=== PATIENT | male | born 1990 | race Caucasian/White ===

== ENCOUNTER 2020-07-10 03:20 | Observation (INO) | payer BC, OTHER ==
--- NOTE | 2020-07-10 04:07 | EDPHYS ---
Physician Documentation [facility] Name: Sarmad Spencer Age: 30 yrs Sex: Male : 1990 Arrival Date: 07/10/2020 Time: 03:22 Bed 8 Private MD: CHANTELL Physician Cuco Varma HPI: 07/10 04:01 This 30 yrs old Male presents to ER via Wheelchair with complaints of Chest mulu Pain. 04:01 The patient or guardian reports chest pain that is located primarily in the substernal mulu area, anterior chest wall, bilaterally. The pain does not radiate. Associated signs and symptoms: Pertinent positives: shortness of breath. The chest pain is described as a heaviness, a pressure, sharp. Duration: The patient or guardian reports a single episode, that is still ongoing. Modifying factors: The symptoms are alleviated by nothing. the symptoms are aggravated by deep breath. Severity of pain: At its worst the pain was moderate in the emergency department the pain is unchanged. The patient has not experienced similar symptoms in the past. Historical: - Allergies: 03:35 No Known Allergies; sg - Home Meds: 03:35 Lisinopril Oral [Active]; testosterone undecanoate intramuscular intramuscular [Active];sg - PMHx: 03:35 Hypertension; sg - PSHx: 03:35 None; sg - Immunization history:: Adult Immunizations up to date. - Social history:: Smoking status: Patient denies any tobacco usage or history of. - Family history:: not pertinent. ROS: 04:01 Constitutional: Negative for fever, chills, and weight loss, Eyes: Negative for injury, mulu pain, redness, and discharge, ENT: Negative for injury, pain, and discharge, Neck: Negative for injury, pain, and swelling, Respiratory: Negative for shortness of breath, cough, wheezing, and pleuritic chest pain, Abdomen/GI: Negative for abdominal pain, nausea, vomiting, diarrhea, and constipation, Back: Negative for injury and pain, : Negative for injury, bleeding, discharge, and swelling, MS/Extremity: Negative for injury and deformity, Skin: Negative for injury, rash, and discoloration, Neuro: Negative for headache, weakness, numbness, tingling, and seizure, Psych: Negative for depression, anxiety, suicide ideation, homicidal ideation, and hallucinations, Allergy/Immunology: Negative for hives, rash, and allergies, Endocrine: Negative for neck swelling, polydipsia, polyuria, polyphagia, and marked weight changes. 04:01 Cardiovascular: Positive for chest pain, of the chest. 05:56 ENT: Negative for sinus congestion, sore throat, difficulty swallowing. mulu 05:56 Cardiovascular: Positive for pleurtic. 05:56 MS/extremity: Negative for acute changes. Exam: 04:01 Constitutional: This is a well developed, well nourished patient who is awake, alert, mulu and in no acute distress. Head/Face: Normocephalic, atraumatic. Eyes: Pupils equal round and reactive to light, extra-ocular motions intact. Lids and lashes normal. Conjunctiva and sclera are non-icteric and not injected. Cornea within normal limits. Periorbital areas with no swelling, redness, or edema. ENT: Nares patent. No nasal discharge, no septal abnormalities noted. Tympanic membranes are normal and external auditory canals are clear. Oropharynx with no redness, swelling, or masses, exudates, or evidence of obstruction, uvula midline. Mucous membranes moist. Neck: Trachea midline, no thyromegaly or masses palpated, and no cervical lymphadenopathy. Supple, full range of motion without nuchal rigidity, or vertebral point tenderness. No Meningismus. Chest/axilla: Normal chest wall appearance and motion. Nontender with no deformity. No lesions are appreciated. Cardiovascular: Regular rate and rhythm with a normal S1 and S2. No gallops, murmurs, or rubs. Normal PMI, no JVD. No pulse deficits. Respiratory: Lungs have equal breath sounds bilaterally, clear to auscultation and percussion. No rales, rhonchi or wheezes noted. No increased work of breathing, no retractions or nasal flaring. Abdomen/GI: Soft, non-tender, with normal bowel sounds. No distension or tympany. No guarding or rebound. No evidence of tenderness throughout. Back: No spinal tenderness. No costovertebral tenderness. Full range of motion. Male : Normal genitalia with no discharge or lesions. Skin: Warm, dry with normal turgor. Normal color with no rashes, no lesions, and no evidence of cellulitis. MS/ Extremity: Pulses equal, no cyanosis. Neurovascular intact. Full, normal range of motion. Neuro: Awake and alert, GCS 15, oriented to person, place, time, and situation. Cranial nerves II-XII grossly intact. Motor strength 5/5 in all extremities. Sensory grossly intact. Cerebellar exam normal. Normal gait. Psych: Awake, alert, with orientation to person, place and time. Behavior, mood, and affect are within normal limits. 04:08 ECG was reviewed by the Attending Physician. mulu 05:55 Cardiovascular: Rate: normal, Rhythm: regular, Pulses: Pulses are 4+ in bilateral mulu radial, brachial, femoral, popliteal, posterior tibial and and dorsalis pedis arteries.. Heart sounds: normal, normal S1and S2, no S3 or S4, no murmur, no rub, no gallop, Edema: is not appreciated, JVD: is not appreciated. 05:55 Abdomen/GI: Inspection: abdomen appears normal, Bowel sounds: normal, Palpation: abdomen is soft and non-tender, Liver: no appreciated palpable abnormalities, Hernia: not appreciated. 05:55 Musculoskeletal/extremity: DVT Exam: No signs of deep vein thrombosis. no pain, no swelling, no tenderness, negative Homans' sign noted on exam, no appreciated bluish discoloration, no erythema, no increased warmth. 05:57 Respiratory: the patient does not display signs of respiratory distress, Respirations: mulu normal, no acute changes, Breath sounds: are clear throughout, no bronchial sounds, no decreased breath sounds, no rales, rhonchi, no stridor, no wheezing, Respiratory rate: 16 Vital Signs: 03:31 BP 156 / 112; Pulse 89; Resp 18 S; Pulse Ox 100% on R/A; Weight 99.79 kg; Height 6 ft. sg 2 in. (187.96 cm); Pain 10/10; 04:15 BP 116 / 73; Pulse 67; Resp 16; Pulse Ox 97% on R/A; Pain 6/10; mt2 04:28 BP 127 / 85; Pulse 91; Resp 17; Pulse Ox 97% on R/A; Pain 6/10; mt2 05:00 BP 122 / 81; Pulse 95; Resp 16; Pulse Ox 99% on R/A; Pain 3/10; mt2 06:27 BP 127 / 81; Pulse 96; Resp 16; Pulse Ox 97% ; Pain 0/10; mt2 03:31 Body Mass Index 28.25 (99.79 kg, 187.96 cm) sg 04:15 LEFT ARM mt2 04:28 RIGHT ARM mt2 MDM: 03:30 Patient medically screened. mulu 04:03 Data reviewed: vital signs, nurses notes, lab test result(s), EKG, radiologic studies, mulu CT scan, plain films. 04:03 Differential diagnosis: abnormal EKG, coronary artery disease chest wall pain, mulu cholecystitis, Cholelithiasis hiatal hernia, pleurisy, pulmonary embolus, stable angina, unstable angina. HEART Score: History: Slightly Suspicious (0), ECG: Normal (0), Age: < or = 45 years (0), Risk Factors: 1 or 2 risk factors (1), [Hypertension] Troponin: < or = 1 x Normal Limit (0). The patient's deep vein thrombosis risk score was calculated as follows: Total Score: 0. This patient was found to be at low risk for a deep vein thrombosis by using the Well's assessment criteria. The patient's pulmonary embolism risk score was calculated as follows: Total Score: 0-2 points. This patient was found to be at low risk for a pulmonary embolism by using the Well's assessment criteria. NICK Risk Score: TOTAL SCORE = 0. Data interpreted: conversion worker: rate is 89 beats/min, rhythm is regular, Pulse oximetry: on. Test interpretation: by ED physician or midlevel provider: ECG, plain radiologic studies. Counseling: I had a detailed discussion with the patient and/or guardian regarding: the historical points, exam findings, and any diagnostic results supporting the discharge/admit diagnosis, the presence of at least one elevated blood pressure reading (>120/80) during this emergency department visit, lab results, radiology results, the need for further work-up and treatment in the hospital. 05:37 Medication response: morphine markedly relieved the patient's pain. Symptoms have mulu improved, 07/10 03:31 Order name: Basic Metabolic Panel; Complete Time: 05:40 mulu 07/10 03:31 Order name: CBC with Diff; Complete Time: 05:04 mulu 07/10 03:31 Order name: LFT's; Complete Time: 05:40 mulu 07/10 03:31 Order name: Magnesium; Complete Time: 05:40 mulu 07/10 03:31 Order name: PT-INR; Complete Time: 05:04 [facility] 07/10 03:31 Order name: Troponin (emerg Dept Use Only); Complete Time: 05:40 [facility] 07/10 03:31 Order name: XRAY Chest (1 view) [facility] 07/10 03:31 Order name: Lipase; Complete Time: 05:40 [facility] 07/10 03:31 Order name: UDS; Complete Time: 05:04 [facility] 07/10 04:01 Order name: CT Chest For PE Angio [facility] 07/10 04:29 Order name: Urine Dipstick--Ancillary (enter results); Complete Time: 05:04 2 07/10 07:00 Order name: CREATININE WHOLE BLOOD [facility] 07/10 03:31 Order name: EKG; Complete Time: 03:32 [facility] 07/10 03:31 Order name: Cardiac monitoring; Complete Time: 03:50 [facility] 07/10 03:31 Order name: EKG - Nurse/Tech; Complete Time: 03:50 [facility] 07/10 03:31 Order name: IV Saline Lock; Complete Time: 03:50 [facility] 07/10 03:31 Order name: Labs collected and sent; Complete Time: 03:50 [facility] 07/10 03:31 Order name: O2 Per Protocol; Complete Time: 03:50 [facility] 07/10 03:31 Order name: O2 Sat Monitoring; Complete Time: 03:50 [facility] 07/10 04:09 Order name: Bilateral blood pressure; Complete Time: 04:15 [facility] EC:08 Rate is 89 beats/min. Rhythm is regular. QRS [place] is Normal. HI interval is normal. QRS mulu interval is normal. QT interval is normal. No Q waves. T waves are Normal. No ST changes noted. Clinical impression: Normal ECG and No evidence of ischemia. Interpreted by me. Reviewed by me. Administered Medications: 04:13 Drug: Zofran (Ondansetron) 4 mg Route: IVP; Site: right antecubital; mt2 04:28 Follow up: Response: No adverse reaction mt2 04:14 Drug: Pepcid 20 mg Route: IVP; Site: right antecubital; mt2 04:29 Follow up: Response: No adverse reaction; Pain is decreased mt2 04:14 Drug: NS 0.9% 1000 ml Route: IV; Rate: 1 bolus; Site: right antecubital; mt2 04:29 Follow up: Response: No adverse reaction mt2 05:34 Follow up: Response: No adverse reaction; IV Status: Completed infusion mt2 04:14 Not Given (B/P WNL): Lopressor 5 mg IVP once; Hold for SBP <100 or HR <60. mt2 04:14 Drug: Lopressor (metoprolol TARTRATE) 50 mg Route: PO; mt2 04:29 Follow up: Response: No adverse reaction; Blood pressure is lowered mt2 04:14 Not Given (Patient Refused): morphine 4 mg IVP once; RASS on ADMIN: Combtv4, Very mt2 Agttd3, Agttd2, Rstlss1, AlertClm0, Drwsy-1, Lt Sdtn-2, Mod Sdtn-3, Dp Sdtn-4, UnArsble-5 04:15 Drug: Aspirin Chewable Tablet 162 mg Route: PO; mt2 04:29 Follow up: Response: No adverse reaction mt2 04:45 Drug: Lovenox 100 mg Route: Sub-Q; Site: left upper abdomen; mt2 05:34 Follow up: Response: No adverse reaction mt2 Disposition: 07/10/20 04:07 Hospitalization ordered by Jessee Salvador for Observation. Preliminary diagnosis are Chest pain on breathing, Chest pain, unspecified, Essential (primary) hypertension, Elevated white blood cell count, Cholelithiasis. - Bed requested for Telemetry/MedSurg (observation). - Status is Observation. ph - Condition is Fair. - Problem is new. - Symptoms have improved. Signatures: Dispatcher [employer] EDMS Ilia Donahue RN Cuco Girard MD MD cha Attema, Lee, DEVICE ENGINEER-C DEVICE ENGINEER-Cla1 Halle Miller RN RN tl1 Farida Taylor RN RN Missy Degroot, RN RN mt2 Corrections: (The following items were deleted from the chart) 04:06 04:06 07/10/2020 04:06 Discharged to Home. Impression: Chest pain on breathing; mulu Essential (primary) hypertension. Condition is Stable. Forms are Medication Reconciliation Form, Thank You Letter, Antibiotic Education, Prescription Opioid Use. Follow up: Private Physician; When: 2 - 3 days; Reason: Recheck today's complaints, Continuance of care, Re-evaluation by your physician. Problem is new. Symptoms have improved. mulu 04:32 04:07 Hospitalization Ordered by Dominic Ozuna DO for Observation. Preliminary la1 diagnosis is Chest pain on breathing; Chest pain, unspecified; Essential (primary) hypertension. Bed requested for Telemetry/MedSurg (observation). Status is Observation. Condition is Fair. Problem is new. Symptoms have improved. mulu 05:05 04:32 07/10/2020 04:07 Hospitalization Ordered by Jessee Salvador MD for Observation. mulu Preliminary diagnosis is Chest pain on breathing; Chest pain, unspecified; Essential (primary) hypertension. Bed requested for Telemetry/MedSurg (observation). Status is Observation. Condition is Fair. Problem is new. Symptoms have improved. la1 06:10 05:05 07/10/2020 04:07 Hospitalization Ordered by Jessee Salvador MD for Observation. mulu Preliminary diagnosis is Chest pain on breathing; Chest pain, unspecified; Essential (primary) hypertension; Elevated white blood cell count. Bed requested for Telemetry/MedSurg (observation). Status is Observation. Condition is Fair. Problem is new. Symptoms have improved. mulu 06:30 06:10 07/10/2020 04:07 Hospitalization Ordered by Jessee Salvador MD for Observation. tl1 Preliminary diagnosis is Chest pain on breathing; Chest pain, unspecified; Essential (primary) hypertension; Elevated white blood cell count; Cholelithiasis. Bed requested for Telemetry/MedSurg (observation). Status is Observation. Condition is Fair. Problem is new. Symptoms have improved. mulu 07:26 06:30 07/10/2020 04:07 Hospitalization Ordered by Jessee Salvador MD for Observation. ph Preliminary diagnosis is Chest pain on breathing; Chest pain, unspecified; Essential (primary) hypertension; Elevated white blood cell count; Cholelithiasis. Bed requested for Telemetry/MedSurg (observation). Status is Observation. Condition is Fair. Problem is new. Symptoms have improved. tl1
--- NOTE | 2020-07-10 04:07 | ER ---
Nurse's Notes [facility] Name: Sarmad Spencer Age: 30 yrs Sex: Male : 1990 Arrival Date: 07/10/2020 Time: 03:22 Bed 8 Private MD: Diagnosis: Chest pain on breathing;Chest pain, unspecified;Essential (primary) hypertension;Elevated white blood cell count;Cholelithiasis Presentation: 07/10 03:31 Chief complaint: Patient states: CP, middle of my chest, woke me up from sleeping, sg states recently diagnosed with hypertension and started on lisinopril, states feeling short of breath as well, denies fever/chills/N/V/D. Coronavirus screen: Client denies travel out of the [place] in the last 14 days. At this time, the client does not indicate any symptoms associated with coronavirus-19. Ebola Screen: Patient negative for fever greater than or equal to 101.5 degrees Fahrenheit, and additional compatible Ebola Virus Disease symptoms Patient denies exposure to infectious person. Patient denies travel to an Ebola-affected area in the 21 days before illness onset. No symptoms or risks identified at this time. Initial Sepsis Screen: Does the patient meet any 2 criteria? No. Patient's initial sepsis screen is negative. Does the patient have a suspected source of infection? No. Patient's initial sepsis screen is negative. Risk Assessment: Do you want to hurt yourself or someone else? Patient reports no desire to harm self or others. Onset of symptoms was July 10, 2020. Care prior to arrival: None. Transition of care: patient was not received from another setting of care. 03:31 Method Of Arrival: Wheelchair 03:31 Acuity: JATINDER 3 sg Historical: - Allergies: 03:35 No Known Allergies; sg - Home Meds: 03:35 Lisinopril Oral [Active]; testosterone undecanoate intramuscular intramuscular [Active];sg - PMHx: 03:35 Hypertension; sg - PSHx: 03:35 None; sg - Immunization history:: Adult Immunizations up to date. - Social history:: Smoking status: Patient denies any tobacco usage or history of. - Family history:: not pertinent. Screenin:52 Abuse screen: Denies threats or abuse. Nutritional screening: No deficits noted. mt2 Tuberculosis screening: No symptoms or risk factors identified. Fall Risk None identified. Assessment: 04:16 General: Appears uncomfortable, Behavior is anxious. Pain: Pain radiates to anterior mt2 aspect of right shoulder Pain currently is 6 out of 10 on a pain scale. Quality of pain is described as aching, Pain began gradually. Neuro: No deficits noted. Cardiovascular: Reports chest pain. Respiratory: No deficits noted. GI: No deficits noted. : No deficits noted. EENT: No deficits noted. Derm: No deficits noted. 05:00 Reassessment: Patient and/or family updated on plan of care and expected duration. Pain mt2 level reassessed. Patient is alert, oriented x 3, equal unlabored respirations, skin warm/dry/pink. General: Appears comfortable, Behavior is cooperative. 06:11 Reassessment: Patient and/or family updated on plan of care and expected duration. Pain mt2 level reassessed. Patient is alert, oriented x 3, equal unlabored respirations, skin warm/dry/pink. Patient denies pain at this time. General: Appears comfortable, Behavior is cooperative. Vital Signs: 03:31 BP 156 / 112; Pulse 89; Resp 18 S; Pulse Ox 100% on R/A; Weight 99.79 kg; Height 6 ft. sg 2 in. (187.96 cm); Pain 10/10; 04:15 BP 116 / 73; Pulse 67; Resp 16; Pulse Ox 97% on R/A; Pain 6/10; mt2 04:28 BP 127 / 85; Pulse 91; Resp 17; Pulse Ox 97% on R/A; Pain 6/10; mt2 05:00 BP 122 / 81; Pulse 95; Resp 16; Pulse Ox 99% on R/A; Pain 3/10; mt2 06:27 BP 127 / 81; Pulse 96; Resp 16; Pulse Ox 97% ; Pain 0/10; mt2 03:31 Body Mass Index 28.25 (99.79 kg, 187.96 cm) sg 04:15 LEFT ARM mt2 04:28 RIGHT ARM mt2 ED Course: 03:22 Patient arrived in ED. cl3 03:30 Cuco Varma MD is Attending Physician. mulu 03:33 Triage completed. sg 03:35 Arm band placed on. sg 03:35 Patient has correct armband on for positive identification. Placed in gown. Bed in low mt2 position. Call light in reach. Side rails up X 1. cafeteria monitor on. Pulse ox on. NIBP on. 03:49 Missy Degroot, BERT is Primary Nurse. mt2 03:51 Initial lab(s) drawn, by me, sent to lab. Inserted saline lock: 20 gauge in right mt2 antecubital area, using aseptic technique. Blood collected. 03:52 XRAY Chest (1 view) In Process Unspecified. EDMS 04:06 Dominic Ozuna DO is Hospitalizing Provider. mulu 04:17 Patient maintains SpO2 saturation greater than 95% on room air. mt2 04:32 Jessee Salvador MD is Hospitalizing Provider. la1 04:39 Lab(s) recollected. mt2 05:37 CT Chest For PE Angio In Process Unspecified. EDMS 06:31 No provider procedures requiring assistance completed. Patient admitted, IV remains in mt2 place. Administered Medications: 04:13 Drug: Zofran (Ondansetron) 4 mg Route: IVP; Site: right antecubital; mt2 04:28 Follow up: Response: No adverse reaction mt2 04:14 Drug: Pepcid 20 mg Route: IVP; Site: right antecubital; mt2 04:29 Follow up: Response: No adverse reaction; Pain is decreased mt2 04:14 Drug: NS 0.9% 1000 ml Route: IV; Rate: 1 bolus; Site: right antecubital; mt2 04:29 Follow up: Response: No adverse reaction mt2 05:34 Follow up: Response: No adverse reaction; IV Status: Completed infusion mt2 04:14 Not Given (B/P WNL): Lopressor 5 mg IVP once; Hold for SBP <100 or HR <60. mt2 04:14 Drug: Lopressor (metoprolol TARTRATE) 50 mg Route: PO; mt2 04:29 Follow up: Response: No adverse reaction; Blood pressure is lowered mt2 04:14 Not Given (Patient Refused): morphine 4 mg IVP once; RASS on ADMIN: Combtv4, Very mt2 Agttd3, Agttd2, Rstlss1, AlertClm0, Drwsy-1, Lt Sdtn-2, Mod Sdtn-3, Dp Sdtn-4, UnArsble-5 04:15 Drug: Aspirin Chewable Tablet 162 mg Route: PO; mt2 04:29 Follow up: Response: No adverse reaction mt2 04:45 Drug: Lovenox 100 mg Route: Sub-Q; Site: left upper abdomen; mt2 05:34 Follow up: Response: No adverse reaction mt2 Outcome: 04:06 Discharge ordered by . [facility] 04:07 Decision to Hospitalize by Provider. [facility] 06:31 Condition: stable mt2 06:31 Instructed on the need for admit. 06:39 Admitted to Med/surg accompanied by tech, room 406, Report called to MAYRA MCDONALD mt2 RN. TOOK REPORT PT TO GO AFTER SHIFT CHANGE 07:26 Patient left the ED. ph Addendum: 07/21/2020 14:26 Addendum: COVID-19 Result: Negative result given to RN to notify pt. Attempted to i w contact pt regarding negative COVID-19 swab results. Left voice mail. 16:35 Addendum: COVID-19 Result: Negative result given to RN to notify pt. Notified pt of i w negative COVID 19 swab results. Pt advised that even with a negative test result they should remain in isolation until symptom free for 3 days without medication. Pt also advised to return to the ED for worsening symptoms. Signatures: Dispatcher [employer] EDMS Ilia Donahue, RN Cuco Girard MD MD cha Williams, Irene, RN RN iw Tera Narayan, COAL YARD SUPERVISOR-C COAL YARD SUPERVISOR-Cla1 Farida Taylor RN RN ph Lewis, Charde cl3 Missy Degroot RN RN mt2 Corrections: (The following items were deleted from the chart) 07/10 04:28 04:15 BP 116 / 73; Pulse 67bpm; Resp 16bpm; Pulse Ox 97% RA; Pain 6/10; mt2 mt2
[2020-07-10] MEDS ORDERED: METOPROLOL TARTRATE 5 MG/5 ML INJ IV ONE (04:15)
[2020-07-10] MEDS ORDERED: ASPIRIN 81 MG CHEWABLE TABLET ONE (04:15)
[2020-07-10] MEDS ORDERED: ONDANSETRON 4 MG/2 ML VIAL ONE (04:15)
[2020-07-10] MEDS ORDERED: MORPHINE 4 MG/ML SYR ONE (04:15)
[2020-07-10] MEDS ORDERED: NA CHLORIDE 0.9% 1,000 ML ONE (04:16)
[2020-07-10] MEDS ORDERED: FAMOTIDINE 20 MG/2 ML VIAL IV ONE (04:16)
[2020-07-10] MEDS ORDERED: METOPROLOL TAR 50 MG TAB ONE (04:23)
[2020-07-10 04:57] LABS: Barbiturates NEGATIVE (NEGATIVE); Benzodiazepines NEGATIVE (NEGATIVE); Cocaine NEGATIVE (NEGATIVE); METHAMPHETAM NEGATIVE (NEGATIVE); Methadone NEGATIVE (NEGATIVE); Opiates NEGATIVE (NEGATIVE); Phencyclidine NEGATIVE (NEGATIVE); THC Cannibis NEGATIVE (NEGATIVE)
[2020-07-10] MEDS ORDERED: ENOXAPARIN 100 MG/ML SYR SQ ONE (04:57)
[2020-07-10 04:58] LABS: Basophils % 0.3 % (0-1.3); Hematocrit 52.2 % (39.6-49.0); Lymphocytes % 12.1 % (15.3-44.8); MPV 9.9 fL (7.6-11.3); RBC Red Blood Cell Count 5.82 M/uL (4.33-5.43)
[2020-07-10 04:59] LABS: Protime INR 0.94
[2020-07-10 05:00] LABS: Urine Blood NEGATIVE (NEG); Urine Glucose NEGATIVE (NEG); Urine Protein NEGATIVE (NEG); Urine Specific Gravity 1.025 (1.005-1.030); Urine pH 5.5 (5.0-7.0)
[2020-07-10 05:34] LABS: ALT/SGPT 48 U/L (12-78); Albumin 3.5 g/dL (3.4-5.0); Alkaline Phosphatase 46 U/L (45-117); BUN Blood Urea Nitrogen 13 mg/dL (7-18); Bicarbonate 28 mmol/L (21-32); Bilirubin Direct 0.1 mg/dL (0-0.2); Bilirubin Total 0.6 mg/dL (0.2-1.0); Glucose Level 118 mg/dL (74-106); Lipase 104 U/L (73-393); Protein, Total 6.9 g/dL (6.4-8.2); Sodium Level 139 mmol/L (136-145); Troponin (Emerg Dept Use Only) < 0.02 ng/mL (0.0-0.045)
[2020-07-10 05:38] LABS: AST/SGOT 26 U/L (15-37); Potassium 4.4 mmol/L (3.5-5.1)
--- NOTE | 2020-07-10 05:38 | P.HP ---
Certification for Inpatient Patient admitted to: Observation With expected LOS: <2 Midnights Patient will require the following post-hospital care: None Practitioner: I am a practitioner with admitting privileges, knowledge of patient current condition, hospital course, and medical plan of care. Services: Services provided to patient in accordance with Admission requirements found in Title 42 Section 412.3 of the Code of Federal Regulations <Tera Narayan - Last Filed: 07/10/20 06:13> Patient History Date of Service: 07/10/20 Primary Care Provider: Alpesh Reason for admission: Chest pain History of Present Illness: 30-year-old male with history of hypertension presents emergency department for chest pain and shortness of breath. Patient reports that he was woken at 1:30 a.m. this morning having chest pain that radiated to his left shoulder. Patient reports he went back to sleep and was again woken at approximately 3:30 a.m. this morning again having chest pain and shortness of breath. Patient reports he has never had symptoms like this in the past. Patient does use tobacco products but does not have a family history of heart disease. Patient was evaluated in the emergency department found to have moderate elevated white blood cell count at 16.9. Initial troponin negative. ED provider wishes to admit patient under observation for chest pain. When I saw the patient in the emergency department he was awake, alert, oriented x3. Patient does report some mild substernal chest pain radiating to left arm as well as some mild shortness of breath. Patient does report that while he is experiencing some pressure-like chest pain he is also experiencing some pleuritic chest pain with deep breaths. - Past Medical/Surgical History Diabetic: No -: Hypertension Past Surgical History: Patient denies surgical history Psychosocial/ Personal History: Patient is a constable and lives with his - Family History Father -: Cancer (Kidney) - Social History Smoking Status: Never smoker Alcohol use: Yes CD- Drugs: No Caffeine use: No Place of Residence: Home <Tera Narayan - Last Filed: 07/10/20 06:13> Date of Service: 07/10/20 <Jessee Salvador - Last Filed: 07/10/20 16:42> Review of Systems 10-point ROS is otherwise unremarkable Respiratory: Shortness of Breath Cardiovascular: Chest Pain Gastrointestinal: Diarrhea <Tera Narayan - Last Filed: 07/10/20 06:13> Physical Examination - Physical Exam General: Alert, In no apparent distress, Oriented x3 HEENT: Atraumatic, Normocephalic, PERRLA, Mucous membr. moist/pink Neck: Supple Respiratory: Clear to auscultation bilaterally, Normal air movement Cardiovascular: No edema, Regular rate/rhythm, Normal S1 S2 Capillary refill: <2 Seconds Gastrointestinal: Normal bowel sounds, No masses, No rebound, No guarding, Tenderness (Very mild right lower quadrant abdominal tenderness) Musculoskeletal: No contractures, No erythema, No tenderness Integumentary: No tenderness/swelling, No erythema, No warmth Neurological: Normal speech, Normal strength at 5/5 x4 extr, Normal tone, Sensation intact - Studies Laboratory Data (last 24 hrs) 07/10/20 04:20: PT 11.1, INR 0.94 07/10/20 04:20: WBC 16.9 H, Hgb 17.5, Hct 52.2 H, Plt Count 271 <Tera Narayan - Last Filed: 07/10/20 06:13> - Studies Laboratory Data (last 24 hrs) 07/10/20 04:20: PT 11.1, INR 0.94 07/10/20 04:20: WBC 16.9 H, Hgb 17.5, Hct 52.2 H, Plt Count 271 07/10/20 04:20: Sodium 139, Potassium 4.4, BUN 13, Creatinine 1.15, Glucose 118 H, Magnesium 2.0, Total Bilirubin 0.6, AST 26, ALT 48, Alkaline Phosphatase 46, Lipase 104 <Jessee Salvador - Last Filed: 07/10/20 16:42> Assessment and Plan - Plan Assessment Chest pain rule out ACS Hypertension Plan Chest pain rule out ACS: Initial troponin levels normal, will trend troponin, cardiology consult in place Patient with concerning story but not many risk factors. Continue with daily aspirin and beta-blockers. DVT prophylaxis, Lovenox 40 mg subcutaneous once daily. Hypertension: Obtain and continue patient's home medications. Discharge Plan: Home Plan to discharge in: 24 Hours - Advance Directives Does patient have a Living Will: No Does patient have a Durable POA for Healthcare: No - Code Status/Comfort Care Code Status Assessed: Yes (Patient is full code) Critical Care: No Time Spent Managing Pts Care (In Minutes): 55 <Tera Narayan - Last Filed: 07/10/20 06:13> Physician Review Additional Text: Plan of care discussed with Tera Narayan, and I agree with the management plan as noted above. Patient with mild right lower quadrant tenderness on exam, no other focal findings. No chest wall tenderness. CT chest negative for PE, notable for some cholelithiasis. Patient without a right upper quadrant pain, do not suspect gallbladder pathology/etiology of leukocytosis Given leukocytosis, and right lower quadrant tenderness will obtain CT abdomen/pelvis to rule out smoldering appendicitis The patient reports some history of GERD, will give Protonix Awaiting cardiology evaluation <Jessee Salvador - Last Filed: 07/10/20 16:42>
[2020-07-10] MEDS ORDERED: ACETAMINOPHEN 500 MG TAB PO PRN (07:49)
[2020-07-10] MEDS ORDERED: NA CHLORIDE 0.9% 1,000 ML IV SCH (07:49)
[2020-07-10] MEDS ORDERED: ONDANSETRON 4 MG/2 ML VIAL IV PRN (07:49)
[2020-07-10 07:53] VITALS: BMI 29.7
--- NOTE | 2020-07-10 08:53 | RAD REPORT ---
EXAM DESCRIPTION: RAD - Chest Single View - 07/10/2020 3:52 am CLINICAL HISTORY: CHEST PAIN Chest pain. COMPARISON: Chest For Pe Angio dated 07/10/2020 FINDINGS: Portable technique limits examination quality. The lungs are grossly clear. The heart is normal in size. No displaced fractures. IMPRESSION: No acute intrathoracic process suspected.
--- NOTE | 2020-07-10 15:15 | RAD REPORT ---
EXAM DESCRIPTION: CTA CHEST WITH CONTRAST CLINICAL HISTORY: Chest pain; Dyspnea COMPARISON: None. TECHNIQUE: Axial CT imaging of the thorax utilizing intravenous contrast. Reformatted multiplanar im ages obtained including reconstructed maximum intensity projection images. This exam was performed according to our departmental dose-optimization program which includes automa irma exposure control, adjustment of the mA and/or kV according to patient size and/or use of iterativ e reconstruction technique FINDINGS: PULMONARY ARTERIES: Normal caliber main pulmonary artery. No filling defect within the ri ght atrium, right ventricle, central or peripheral pulmonary arteries. HEART/GREAT VESSELS: Heart is normal in size. Normal caliber thoracic aorta. MEDIASTINUM/JEREMY: No adenopathy. Normal central airways. Normal esophagus. LUNGS/PLEURA: Lungs are clear. No edema. No pneumothorax. Pleural spaces are clear. CHEST WALL/SOFT TISSUES: Intact sternum. Mild lower thoracic spondylosis. Intact remaining bony thor ax. UPPER ABDOMEN: Mild hepatic steatosis. Stones are partially seen within the gallbladder. Unremarkabl e spleen. Included bowel loops appear normal. IMPRESSION: 1. No pulmonary embolism. No acute cardiopulmonary finding. 2. Fatty liver infiltration. 3. Gallstones, not fully imaged. Electronically signed by: Trisha Gaston DO 07/10/2020 6:01 AM CDT Due to temporary technical issues with the PACS/Fluency reporting system, reports are being signed by the in house radiologist without review as a courtesy to ensure prompt reporting. The interpreting r adiologist is fully responsible for the content of the report.
--- NOTE | 2020-07-10 15:30 | RAD REPORT ---
EXAM DESCRIPTION: CT - Abdomen Pelvis W Contrast - 07/10/2020 3:18 pm CLINICAL HISTORY: RLQ pain, leukocytosis, gallstones COMPARISON: Chest For Pe Angio dated 07/10/2020 TECHNIQUE: Biphasic, helical CT imaging of the abdomen and pelvis was performed following 100 ml non -ionic IV contrast. Oral contrast was given. All CT scans are performed using dose optimization technique as appropriate and may include automated exposure control or mA/KV adjustment according to patient size. FINDINGS: No acute lung base finding. Prominent fatty infiltration pattern of the liver is present. No focal liver lesion is identifiable. No spleen or pancreatic abnormality. Numerous gallstones fill the lumen of a contracted gallbladder. No wall thickening or edema. No biliary tree dilatation. Symmetric renal function is seen with no hydronephrosis or suspicious renal mass. No pyelonephritis o r acute parenchymal process. No bladder abnormalities. No adrenal abnormalities. No dilated bowel loops or bowel wall thickening. Appendix is normal. Patient has a few small mesenter ic lymph nodes present. Minimal periaortic lymph nodes are present under 1 centimeter in size. No hadley e air, free fluid or inflammatory stranding. No hernia, mass or bulky lymphadenopathy. No suspicious bony findings. IMPRESSION: No appendicitis or acute bowel finding. Small mesenteric lymph nodes are present in the central abdomen and right lower quadrant. These lymph nodes are nonspecific but could indicate minimal mesenteric adenitis or enteritis. Patient has multi stone cholelithiasis but no evidence for active gallbladder or biliary process. Fatty infiltration of the liver.
[2020-07-10 16:59] VITALS: BP 115/70; TEMP 98.1
[2020-07-11] MEDS ORDERED: METOPROLOL TAR 25 MG TAB PO SCH (06:00)
[2020-07-11] MEDS ORDERED: ENOXAPARIN 40 MG/0.4 ML SQ SCH (09:00)
[2020-07-11] MEDS ORDERED: ASPIRIN EC 81 MG TAB PO SCH (09:00)
--- NOTE | 2020-07-11 11:14 | EKG ---
Test Date: 2020-07-10 Test Time: 03:31:45 [employer]: KULWANT MEASUREMENT RESULTS: Intervals: Rate: 92 [place]: 166 QRSD: 82 QT: 306 QTc: 378 [place]: P: 70 [place]: 166 QRS: 37 T: 28 INTERPRETIVE STATEMENTS: Normal sinus rhythm with sinus arrhythmia Normal ECG No previous ECG available for comparison Electronically Signed On 07-11-20 11:10:32 CDT by Yusef Veronica
[2020-07-12 04:57] VITALS: O2SAT 97
== END 2020-07-10 19:00 | disposition home or self-care (01) ==
LOC: ER 03:20 → ERHOLD 06:11 → 4TH 06:33
PROVIDERS: ADMIT Hospitalist; ATTEND Hospitalist
DX: R07.9 Chest pain, unspecified (principal); I10 Essential (primary) hypertension; K21.9 Gastro-esophageal reflux disease without esophagitis; D72.829 Elevated white blood cell count, unspecified; I88.0 Nonspecific mesenteric lymphadenitis; K80.20 Calculus of gallbladder without cholecystitis without obstruction; Z20.828 Contact with and (suspected) exposure to other viral communicable diseases; Z80.51 Family history of malignant neoplasm of kidney
CPT/HCPCS: 96361; 93005; 85025; 80048; 36415; 83735; 85610; 82565; 80076; 80307 ×8; 81003; 84484 ×3; 83690; 71275; 74177; 71045; 96375; 96372; 96374; 99285; U0002; Q9967 ×2; J1650; J7030 ×2; J2405; G0378 ×2